=== PATIENT | female | born 1970 | race Caucasian/White ===

== ENCOUNTER → 2017-03-22 | Outpatient (CLI) | payer BC ==
[~2017-03-22] MED LIST: AMITIZA8 MCG PO; ATIVAN PO; HCTZ PO; LEVOXYL50 MCG PO; MEDROL4 MG/DOSE- PO; NAPROSYN-EC500 MG PO; PARAFON FORTE500 M1 PO; PHENTERMINE H37.5 M1 PO; SYNTHROID PO; TRAMADOL HCL50 M1 PO; TRAZODONE HCL100 MG PO; ZANAFLEX4 M1 PO
--- NOTE | ~2017-03-22 | TH ---
Unit #: [id number] #: [id number] Patient: AVIVA MCDANIEL [id number] [address] [address] [id number] O MR#: [id number] NAME: AVIVA MCDANIEL. : 1970 SEX: F STUDY DATE/TIME: 03/22/2017 UNIT: [facility] ROOM: STUDY DESCRIPTION: Cardiolite imaging. Attending Physician: Chente Leiva M.D. Referring Physician: Chente Leiva M.D. Primary Care Physician: Dontae Rinaldi, Bhavik CARDIOLOGY REPORT EXAM Cardiolite imaging and stress test. INDICATION FOR STUDY Dyspnea on exertion, thought to be anginal equivalent, in a patient unable to exercise adequately. SUMMARY The patient received Lexiscan intravenously while at rest. The patient did not develop any symptoms. The rest and stress ECG showed no diagnostic ST shifts, no significant dysrhythmias and no heart block. Heart rate increased from 72 to 107, and blood pressure increased from 127/71 to 130/84. Technetium 99m Cardiolite 11.18 and 34.5 mCi was injected at rest and stress respectively. Appropriate views were obtained. FINDINGS There is very significant intestinal artifact at stress, less with rest. Otherwise perfusion is normal and equivalent between rest and stress, with breast attenuation artifact seen at the apex at both rest and stress. Planar images demonstrate no significant patient motion either at rest or stress. There is breast attenuation artifact. There is no increased lung uptake, left ventricular or right ventricular enlargement. Summed stress scores is zero. Gated perfusion and wall motion analysis demonstrates normal wall motion throughout the myocardium, with end-diastolic volume of 88 ml, ejection fraction greater than 65%. IMPRESSION 1. Myocardial perfusion scan with Lexiscan shows no ischemia or infarction. 2. Normal wall motion with excellent ejection fraction. 3. Normal heart rate, blood pressure and ECG responses to Lexiscan. Dictated by... Brian Plasencia M.D. Jostin TD: 03/23/2017 07:52 JOB #: [id number] Unit #: [id number] #: [id number] Patient: AVIVA MCDANIEL CARDIOLOGY REPORT Page 1 of 1 X Brian Plasencia MD CARDIOLOGY REPORT
--- NOTE | ~2017-03-22 | ST ---
Unit #: [id number] #: [id number] Patient: AVIVA MCDANIEL [id number] [address] [address] [id number] O MR#: [id number] NAME: AVIVA MCDANIEL : 1970 SEX: F STUDY DATE/TIME: 03/22/2017 UNIT: [facility] ROOM: STUDY DESCRIPTION: Attending Physician: Chente Leiva M.D. Referring Physician: Chente Leiva M.D. Primary Care Physician: Bhavik Mariano CARDIOLOGY REPORT EXAM EKG portion of Lexiscan stress test. REASON FOR EXAMINATION Shortness of breath. Baseline EKG is sinus rhythm with a ventricular rate of 84 and nonspecific T-wave abnormalities. Lexiscan is a 4-minute test with Lexiscan being injected within the first minute followed by Cardiolite. FINDINGS 1. EKG during the test was equivocal to baseline. No acute ischemic changes. 2. The patient had complaints of some shortness of breath but no chest pain. No palpitations. No dizziness. The shortness of breath resolved in the recovery phase. 3. Maximum heart rate was 108 beats per minute with a maximum blood pressure of 138/86 mmHg. 4. Cardiolite was injected after the Lexiscan within the first minute of the test. Radionuclide tests are pending. Please correlate with nuclear images. Dictated by... Mae Coffey APRN for Emanuel Trujillo TD: 03/22/2017 09:05 JOB #: [id number] CARDIOLOGY REPORT Page 1 of 1 X CARDIOLOGY REPORT
--- NOTE | ~2017-03-22 | PFT ---
[id number] [facility] [address] [facility]. [place], [place] [address] [id number] O MR#: [id number] NAME: AVIVA MCDANIEL ROOM: SEX: F STUDY DATE/TIME: 03/24/2017 : 1970 AGE: 46 STUDY DESCRIPTION: Attending Physician: Chente Leiva M.D. Referring Physician: Chente Leiva M.D. Primary Care Physician: Bhavik Mariano PULMONARY DIAGNOSTIC REPORT EXAM Pulmonary function test. FINDINGS Spirometry is normal. There is no significant response to bronchodilators. Flow volume loop is normal. Lung volumes are essentially normal, except for a reduced ERV, which can be seen in obesity. Diffusion capacity is normal. Overall fairly unremarkable PFT. Dictated by... Ayaan Lynne M.D. WOL/donovan TD: 03/24/2017 10:39 JOB #: [id number] CC: Chente Leiva M.D. PULMONARY DIAGNOSTIC REPORT Page 1 of 1
== END | disposition home or self-care (01) ==
LOC: CNUC 05:48
DX: R07.9 Chest pain, unspecified (principal); R06.02 Shortness of breath; R06.09 Other forms of dyspnea
CPT/HCPCS: 78452; 93017; 94060; 94726; 94729; A9500; J2785